=== PATIENT | male | born 1970 | race Caucasian/White ===

== ENCOUNTER 2017-01-19 16:32 | Emergency (ER) | payer OTHER ==
[~2017-01-19] VITALS: Ht 172.7 cm; Wt 65.8 kg
[2017-01-19 16:32] VITALS: BP 119/49
[~2017-01-19 16:32] MED LIST: ACETAMINOPHEN-1 EAC1 PO; ALEVE220 M1; APAP500 PO; CARISOPRODOL 3350 MG PO; CYCLOBENZAPRINE10 MG PO; DARVOCET-N 1001 EACH PO; EXCEDRIN CAPLE1 EACH; FLEXERIL PO; IBUPROFEN 200200 M1 PO; IBUPROFEN 600600 M1 PO; IBUPROFEN 800800 M1 PO; IBUPROFEN 800800 MG PO; MEDROL DOSPAK21 TA1 PO; MEDROLDOSEPACK PO; MOBIC15 MG PO; MOBIC7.5 MG PO; NAPROSYN500 MG PO; NOHOMEMEDICATIONS; NORFLEX100 MG PO; PREDNISONE 20 M20 MG PO; RELAFEN500 MG PO; ROBAXIN500 MG PO; TRAMADOL 50 MG50 MG PO; ULTRAM 50MG TAB50 MG PO; VALIUM5 MG PO; [UNRECOGNIZED DRUG - REMARK]
[2017-01-19] MEDS ORDERED: NABUMETONE 750750 M1 PO (16:46)
== END 2017-01-19 17:49 | disposition home or self-care (01) ==
LOC: ER 16:32
DX: S50.11XA Contusion of right forearm, initial encounter (principal); M77.11 Lateral epicondylitis, right elbow; M51.36 Other intervertebral disc degeneration, lumbar region; Z88.0 Allergy status to penicillin; Z88.5 Allergy status to narcotic agent; Z88.8 Allergy status to other drugs, medicaments and biological substances; Z87.891 Personal history of nicotine dependence; W94.12XA Exposure to other prolonged low air pressure, initial encounter; Y93.89 Activity, other specified; Y92.89 Other specified places as the place of occurrence of the external cause; Y99.8 Other external cause status

== ENCOUNTER 2018-06-25 16:25 | Emergency (ER) | payer OTHER ==
[~2018-06-25 16:25] MED LIST changes: +CYCLOBENZAPRINE5 MG PO; +NABUMETONE 750750 M1 PO; +NAPROSYN500 M1 PO
== END 2018-06-25 17:49 | disposition home or self-care (01) ==
LOC: ER 16:25
DX: Z53.21 Procedure and treatment not carried out due to patient leaving prior to being seen by health care provider (principal)

== ENCOUNTER 2018-07-09 20:32 | Emergency (ER) | payer OTHER ==
[~2018-07-09] VITALS: Ht 167.6 cm; Wt 56.7 kg
[2018-07-09] MEDS ORDERED: NAPROSYN500 MG PO (20:57)
== END 2018-07-09 21:20 | disposition home or self-care (01) ==
LOC: ER 20:32
DX: M54.5 Low back pain (principal); G89.29 Other chronic pain; F17.210 Nicotine dependence, cigarettes, uncomplicated; M19.90 Unspecified osteoarthritis, unspecified site; Z88.8 Allergy status to other drugs, medicaments and biological substances; Z88.0 Allergy status to penicillin